=== PATIENT | female | born 1990 | race Caucasian/White ===

== ENCOUNTER 2016-09-29 09:04 | Emergency (ER) | payer MEDICAID ==
[2016-09-29] MEDS ORDERED: IBUPROFEN 400 MG TABLET PO STA (09:28)
--- NOTE | 2016-09-29 09:32 | ED Physician Documentation ---
History of Present Illness - Stated complaint Stated Complaint: RT FINGER - Chief complaint Chief Complaint: Ext Problem - Additonal information Additional information: hx from pt 25 y/o f awoke yesterday AM and R arm felt "asleep" she shook it and flexed her fist a few times and sensation returned but she has continued to have focal R 4th MCP jt pain since denies preg no known injury Review of Systems : denies: Now EGA Musculoskeletal: reports: Extremity pain PD PAST MEDICAL HISTORY - Past Medical History Past Medical History: No - Past Surgical History Past Surgical History: No - Present Medications Home Medications: Ambulatory Orders Medication Instructions Recorded Confirmed No Known Home Medications [No 09/29/16 09/29/16 Known Home Medications] - Allergies Allergies/Adverse Reactions: Allergies Allergy/AdvReac Type Severity Reaction Status Date / Time No Known Drug Allergies Allergy Verified 09/29/16 09:11 - Social History Does the pt smoke?: No Smoking Status: Never smoker PD ED PE NORMAL - Vitals Vital signs reviewed: Yes - Extremities Extremities: Other (R hand s redness swelling or deformity, TTP 4th MTP dorsally , pain to 4th MTP with moving 3rd 4th or 5th fingers, MSV intact) Results - Vitals Vitals: Vital Signs - 24 hr 09/29/16 09:09 Temperature 36.9 C Heart Rate 83 Respiratory 18 Rate Blood Pressure 121/81 H O2 Saturation 97 Oxygen O2 Source Room air - Rads (name of study) hand Radiology: See rad report (neg) PD MEDICAL DECISION MAKING - ED course ED course: given pain with moving fingers 3-5 suspect tendon but will image to ensure to injury occured while sleeping and arm was numb Departure - Departure Disposition: 01 Home, Self Care Clinical Impression: Finger sprain Qualifiers: Encounter type: initial encounter Finger: ring finger Sprain of finger site: metacarpophalangeal joint Laterality: right Qualified Code(s): S63.654A - Sprain of metacarpophalangeal joint of right ring finger, initial encounter Condition: Good Instructions: ED Sprain Finger Comments: The xray is finer - no fracture or dislocation Based on the exam I do not think there is an infection or gout I suspect the finger may have been sprained while your arm was asleep yesterday morning Wear the splint to stabilize the sore joint, take motrin, and apply ice for 20 minutes three times a day Return if worse or new symptoms develop
[2016-09-29] MEDS ORDERED: IBUPROFEN 400 MG TABLET PO ONE (09:51)
--- NOTE | 2016-09-29 11:18 | XRAY Preliminary Report ---
Exam: XR Hand 3 View RT IMPRESSION: Normal hand radiography. [facility] SITE ID: [id number]
--- NOTE | 2016-09-29 11:21 | XRAY Report ---
EXAM: RIGHT HAND RADIOGRAPHY EXAM DATE: 09/29/2016 09:46 AM. CLINICAL HISTORY: Right fourth metacarpophalangeal joint pain and limited range of motion. COMPARISON: None. TECHNIQUE: 3 views. FINDINGS: Bones: Normal. No fractures or bone lesions. Joints: Normal. No subluxations. Soft Tissues: Normal. No soft tissue swelling. IMPRESSION: Normal hand radiography. [facility] Referring Provider Line: [phone] SITE ID: [id number]
[2016-09-29 11:48] VITALS: BP 111/66
== END 2016-09-29 11:46 | disposition home or self-care (01) ==
LOC: ED 09:04
DX: S63.654A Sprain of metacarpophalangeal joint of right ring finger, initial encounter (principal); X58.XXXA Exposure to other specified factors, initial encounter
CPT/HCPCS: 73130; 99283; A9270

== ENCOUNTER 2017-01-22 19:09 | Outpatient (CLI) | payer OTHER ==
--- NOTE | 2017-01-23 12:04 | Ultrasound Report ---
PELVIC ULTRASOUND: 01/22/2017 CLINICAL INDICATION: Secondary oligomenorrhea. TECHNIQUE: Transabdominal pelvic ultrasound performed for global evaluation. Transvaginal pelvic ultr asound performed for detailed evaluation. Real-time scanning performed and static images obtained. FINDINGS: The uterus is anteverted, measuring 8.2 x 4.7 x 3.4 cm. The endometrial echo complex measu res 6 mm. No focal myometrial lesion is appreciated. The ovaries are normal, with the right measuring 2.7 x 2.5 x 1.7 cm, and the left measuring 4.0 x 2.7 x 2.1 cm. No free fluid is present. IMPRESSION: NORMAL PELVIC ULTRASOUND. JOB #: [id number] EXT JOB #:[id number]
== END 2017-01-22 19:10 | disposition home or self-care (01) ==
LOC: DI 19:09
PROVIDERS: ATTEND Registered Nurse
DX: N91.4 Secondary oligomenorrhea (principal); N94.9 Unspecified condition associated with female genital organs and menstrual cycle
CPT/HCPCS: 36415; 76830; 76856; 84436; 84439